=== PATIENT | male | born 1945 | race Caucasian/White ===

== ENCOUNTER 2021-06-20 13:53 | Day surgery (SDC) | payer OTHER, BC ==
[~2021-06-20] VITALS: Ht 180.3 cm; Wt 64.7 kg
[2021-06-20 14:40] LABS: ALANINE AMINOTRANSFERASE 32 U/L (12-78); ALBUMIN 4.2 G/DL (3.4-5.0); ALBUMIN/GLOBULIN RATIO 1.1 (1.1-1.5); ALKALINE PHOSPHATASE 62 IU/L (46-116); ANION GAP 5 (8-16); ASPARTATE AMINO TRANSFERASE 27 U/L (10-37); BILIRUBIN,TOTAL 0.7 MG/DL (0.1-1.0); BLOOD UREA NITROGEN 10 MG/DL (7-18); BUN/CREATININE RATIO 13.3 (5.4-32.0); CALCIUM 9.2 MG/DL (8.5-10.1); CHLORIDE 88 MMOL/L (99-107); CREATININE 0.75 MG/DL (0.60-1.10); GLUCOSE 123 MG/DL (70-104); POTASSIUM 3.7 MMOL/L (3.5-5.1); SODIUM 124 MMOL/L (135-145); TOTAL CARBON DIOXIDE 30.9 MMOL/L (24-32); TOTAL PROTEIN 8.1 G/DL (6.4-8.2); eGFR > 90 ML/MIN
[2021-06-20 15:39] LABS: BASOPHILS % (AUTO) 0.3 % (0-1); EOSINOPHILS % (AUTO) 0.5 % (0-6); HEMATOCRIT 44.5 % (42.0-52.0); HEMOGLOBIN 15.6 g/dl (14.0-17.9); LYMPHOCYTES # (AUTO) 1.1 X10'3 (1.1-4.8); LYMPHOCYTES % (AUTO) 23.5 % (21-51); MEAN CORPUSCULAR HEMOGLOBIN 33.5 PG (27.0-31.0); MEAN CORPUSCULAR HGB CONC 34.9 g/dL (33.0-36.5); MEAN CORPUSCULAR VOLUME 95.7 FL (78-98); MONOCYTES # (AUTO) 0.5 X10'3 (0-0.9); MONOCYTES % (AUTO) 11.2 % (2-12); NEUTROPHILS % (AUTO) 64.5 % (42-75); PLATELET COUNT 195 X10'3 (140-440); RED BLOOD COUNT 4.65 X10'6 (4.70-6.10); RED CELL DISTRIBUTION WIDTH 12.7 % (11.5-14.5); WHITE BLOOD COUNT 4.7 X10'3 (4.5-11.0)
--- NOTE | 2021-06-20 16:15 | NUR ---
Pt states that he has not felt "right" for a while. He has a poor appitie, "I can't eat." Denies nausea and/or abd pain. at the bedside.
[2021-06-20] MEDS ORDERED: normal saline 1000ML IV soln IVB ONE (17:20)
[2021-06-20] MEDS: normal saline 1000ml 1,000 ML IV SCH (18:05)
[2021-06-20] MEDS ORDERED: ondansetron/PF 4mg/2ml inj IV PRN (18:05)
[2021-06-20] MEDS ORDERED: mag hydrox/Alum hydrox/simeth 30ml oral suspension PO PRN (18:05)
[2021-06-20] MEDS ORDERED: magnesium hydroxide 30ml (MOM) UD suspension PO PRN (18:05)
[2021-06-20] MEDS ORDERED: diphenhydrAMINE 25mg capsule PO PRN (18:05)
[2021-06-20] MEDS ORDERED: magnesium Cl slow-release 64mg tablet PO PRN (18:05)
[2021-06-20] MEDS ORDERED: acetaminophen 325mg tablet PO PRN (18:05)
[2021-06-20] MEDS ORDERED: potassium Cl 20 mEq SR tablet PO PRN ×2 (18:05)
[2021-06-20] MEDS ORDERED: HYDROcodone/acetaminophen 5mg/325mg tablet PO PRN (18:05)
[2021-06-20] MEDS ORDERED: HYDROcodone/acetaminophen 10/325mg tab PO PRN (18:05)
[2021-06-20] MEDS ORDERED: magnesium 4gm in 100ml NS 100 ML IV PRN (18:05)
[2021-06-20] MEDS ORDERED: potassium CL 10mEq/100ml bag 100 ML IV PRN (18:05)
[2021-06-20] MEDS ORDERED: bisacodyl 10mg suppository rectal RC PRN (18:05)
[2021-06-20] MEDS ORDERED: acetaminophen 650mg rectal suppository RC PRN (18:05)
[2021-06-20] MEDS ORDERED: magnesium 2GM in 50ml NS 50 ML IV PRN (18:05)
[2021-06-20 18:31] LABS: CLARITY,URINE CLEAR (Clear); COLOR,URINE YELLOW (Yellow); GLUCOSE, URINE NEGATIVE (Neg); KETONES,URINE 15 mg/dl (Neg); LEUKOCYTE ESTERASE ,URINE NEGATIVE (Neg); NITRITES, URINE NEGATIVE (Neg); OCCULT BLOOD,URINE NEGATIVE (Neg); PROTEIN,URINE NEGATIVE (Neg)
[2021-06-20 18:36] LABS: UA COLLECTION TYPE CLN CATCH MIDSTREAM
[2021-06-20 18:48] LABS: HEMOGLOBIN A1C 5.8 % (4.5-6.2)
[2021-06-20] MEDS ORDERED: SIMV-42 PO (19:42)
[2021-06-20] MEDS ORDERED: VERA120T86 PO (19:42)
[2021-06-20] MEDS ORDERED: METF-1203 PO (19:42)
[2021-06-20] MEDS ORDERED: LISI40TA13 PO (19:42)
[2021-06-20] MEDS ORDERED: ONDA4TAB12 PO (19:42)
[2021-06-20] MEDS: docusate sod 100mg capsule PO SCH (20:00)
[2021-06-20] MEDS: K and/or MAG REPLACEMENT MC SCH (20:00)
[2021-06-20] MEDS: heparin, porcine 5000 units/ml vial SQ SCH (20:00)
[2021-06-20] MEDS ORDERED: PRED5DRO23 RIGHTEYE (20:31)
[2021-06-20] MEDS ORDERED: KETO5DRO39 RIGHTEYE (20:31)
[2021-06-20 23:53] VITALS: BP 163/81
[2021-06-21] VITALS (7 sets, daily range): BP systolic 127–173; BP diastolic 75–82
[2021-06-21] MEDS ORDERED: temazepam 15mg capsule PO PRN (00:10)
[2021-06-21] MEDS: normal saline 1000ml 1,000 ML IV SCH ×2 (03:46→10:05)
--- NOTE | 2021-06-21 07:11 | NUR ---
Problems reprioritized. Patient report given, questions answered & plan of care reviewed with Float RN.
[2021-06-21 07:34] LABS: BASOPHILS % (AUTO) 0.6 % (0-1); HEMATOCRIT 36.8 % (42.0-52.0); HEMOGLOBIN 13.1 g/dl (14.0-17.9); LYMPHOCYTES # (AUTO) 1.1 X10'3 (1.1-4.8); LYMPHOCYTES % (AUTO) 31.2 % (21-51); MEAN CORPUSCULAR HEMOGLOBIN 33.5 PG (27.0-31.0); MEAN CORPUSCULAR HGB CONC 35.7 g/dL (33.0-36.5); MEAN CORPUSCULAR VOLUME 93.9 FL (78-98); MEAN PLATELET VOLUME 7.4 FL (7.4-10.4); MONOCYTES # (AUTO) 0.5 X10'3 (0-0.9); MONOCYTES % (AUTO) 14.3 % (2-12); NEUTROPHILS # (AUTO) 1.9 X10'3 (1.8-7.7); NEUTROPHILS % (AUTO) 52.9 % (42-75); PLATELET COUNT 191 X10'3 (140-440); RED BLOOD COUNT 3.92 X10'6 (4.70-6.10); RED CELL DISTRIBUTION WIDTH 12.7 % (11.5-14.5); WHITE BLOOD COUNT 3.6 X10'3 (4.5-11.0)
[2021-06-21] MEDS: K and/or MAG REPLACEMENT MC SCH (08:00)
[2021-06-21] MEDS: docusate sod 100mg capsule PO SCH (08:00)
[2021-06-21] MEDS: heparin, porcine 5000 units/ml vial SQ SCH (08:00)
[2021-06-21 08:26] LABS: ALANINE AMINOTRANSFERASE 24 U/L (12-78); ALBUMIN 3.2 G/DL (3.4-5.0); ALBUMIN/GLOBULIN RATIO 1.2 (1.1-1.5); ALKALINE PHOSPHATASE 46 IU/L (46-116); ANION GAP 7 (8-16); ASPARTATE AMINO TRANSFERASE 22 U/L (10-37); BILIRUBIN,TOTAL 0.5 MG/DL (0.1-1.0); BLOOD UREA NITROGEN 8 MG/DL (7-18); BUN/CREATININE RATIO 13.6 (5.4-32.0); CALCIUM 7.7 MG/DL (8.5-10.1); CHLORIDE 98 MMOL/L (99-107); CHOL/HDL RATIO 1.9 (0.00-4.99); CHOLESTEROL 136 MG/DL (0-200); CREATININE 0.59 MG/DL (0.60-1.10); GLUCOSE 79 MG/DL (70-104); HDL CHOLESTEROL 73 MG/DL (35-60); LDL CHOLESTEROL 48 MG/DL (50-100); MAGNESIUM 1.7 MG/DL (1.5-2.4); PHOSPHORUS 2.8 MG/DL (2.3-4.5); POTASSIUM 3.5 MMOL/L (3.5-5.1); SODIUM 132 MMOL/L (135-145); TOTAL CARBON DIOXIDE 27.1 MMOL/L (24-32); TOTAL PROTEIN 5.8 G/DL (6.4-8.2); TRIGLYCERIDES 42 MG/DL (20-135); eGFR > 90 ML/MIN
[2021-06-21 09:21] LABS: C-REACTIVE PROTEIN 0.07 MG/DL (0.0-0.5)
[2021-06-21 09:51] LABS: D-DIMER 0.42 MG/L FEU (0-0.50)
--- NOTE | 2021-06-21 11:30 | NUR ---
Paged Dr Enrique "[id number] [place]. Pt. has home meds that need to be continued including Lisinopril & Verapamil. BP 173/82 HR 66 supine, and 140/82 HR 84 standing. Thanks. Bro. [id number]."
[2021-06-21] MEDS ORDERED: DEXA6TAB PO (14:16)
[2021-06-21] MEDS ORDERED: ASPI-611 PO (14:16)
[2021-06-21] MEDS ORDERED: ALBU8.5H17 INH (14:17)
[2021-07-06] MEDS ORDERED: PANT40TA54 PO (12:36)
== END 2021-06-21 16:30 | disposition home or self-care (01) ==
LOC: ER 13:54 → UNDOADMOB 18:08 → OR 18:08 → ED HOLD 18:08 → ORTHO 4S 23:03 → ED HOLD 23:03 → OR 06-21 16:30 → UNDODISOB 06-21 16:30
PROVIDERS: ATTEND Family Medicine
DX: E87.1 Hypo-osmolality and hyponatremia (principal); U07.1 COVID-19; I08.1 Rheumatic disorders of both mitral and tricuspid valves; E86.0 Dehydration; K21.9 Gastro-esophageal reflux disease without esophagitis; E11.9 Type 2 diabetes mellitus without complications; I10 Essential (primary) hypertension; Z79.899 Other long term (current) drug therapy; Z79.84 Long term (current) use of oral hypoglycemic drugs; Z72.89 Other problems related to lifestyle; Z81.8 Family history of other mental and behavioral disorders
CPT/HCPCS: 36415; 80053; 80061; 81003; 83036; 83735; 84100; 84443; 85025; 85379; 86140; 87081; 87635; 93306; C9803; J1644; J7030; Q0163; G0378